=== PATIENT | female | born 1945 | race Caucasian/White ===

== ENCOUNTER 2019-10-01 07:30 | Day surgery (SDC) | payer MEDICARE, OTHER ==
[~2019-10-01] VITALS: Ht 180.3 cm; Wt 72.6 kg
[~2019-10-01 07:30] MED LIST: ARMOUR THYROID15 MG PO; ASPIR-LOW81 MG PO; BANOPHEN50 MG PO; BI EST PO; CEPHALEXIN500 MG PO; CHLORELLA100 GM MISC; CORTEF10 MG PO; DEPLIN PO; DHEA25 M1 PO; EPIN0.3P IM; EPIPEN 2-P0.3 MG/0.3 IM; KLOR-CON 1010 MEQ PO; L-METHYLFOLATE7.5 M1 PO; LYSINE1000 MG PO; MEGA TAURINE1000 MG PO; PROBIOTIC1 EAC1 PO; PROG PO; PROGESTERONE100 MG PO; SPIRULINA500 MG PO; TYLENOL WITH C1 EACH PO; V-R WOMEN'S CO1 EACH PO; VITAMIN D33000 UNIT PO; [UNRECOGNIZED DRUG - OTHER] PO; [UNRECOGNIZED DRUG - OTHER] PO; [UNRECOGNIZED DRUG - OTHER] PO; [UNRECOGNIZED DRUG - OTHER] PO; [UNRECOGNIZED DRUG - OTHER] PO
--- NOTE | 2019-10-01 09:34 | NUR ---
10/01/19 0934 [facility] AR[facility]IVED IN PACU SLEEPY WITH NO C/O'S. 0915 SITTING UP IN BED SIPPING ON WATER. AT BEDSIDE TALKING WITH PT ABOUT PROCEDURE. 924 DC INSTRUCTIONS GIVEN. ALL QUESTIONS ANSWERED. PT GETTING DRESSED WITH RN STAND BY ASSIST. 929 PT DRESSED. IV DC'D. TIP INTACT. INSTRUCTIONS GIVEN TO .
--- NOTE | 2019-10-02 10:11 | OR ---
[facility] [address], [place] [address] Signed DATE OF OPERATION: 10/01/2019 SURGEON: Neo Cerda MD PREOPERATIVE DIAGNOSES: 1. Self described "celiac disease.". 2. Upper abdominal pain and diarrhea. 3. History of normal colonoscopy and known history of cholecystectomy. POSTOPERATIVE DIAGNOSES: 1. Mild diffuse gastritis without ulceration, poor flap valve, normal esophagus. 2. Normal-appearing duodenum and proximal jejunum. PROCEDURE: Esophagogastroduodenoscopy with biopsy. ANESTHESIA: Intravenous sedation fentanyl 100 mcg, Versed 3 mg. INDICATION: This 74-year-old white woman is a patient of Curtis Hutchins and has self described "celiac disease" for many years. She has had diarrhea problem for which she has undergone colonoscopy showing no pathologic abnormality. She has also had cholecystectomy in the past and empiric treatment with Questran did show some improvement of her diarrhea problem. She has never had formal testing regarding the celiac disease and is admitted at this time to undergo upper endoscopy to perform jejunal and duodenal biopsies and to assess for upper abdominal pain problems. Risks of bleeding, infection, and perforation related to upper endoscopy was reviewed with her and she understands and wished to proceed. FINDINGS: Esophagus was normal though the flap valve was poor. There was mild diffuse gastritis without sign of ulceration. CLOtest was equivocal at 15 minutes post procedure. The duodenum and proximal jejunum did not have serrated edges to suggest celiac disease, though biopsies were obtained nevertheless. DESCRIPTION OF PROCEDURE: The patient was brought to the endoscopy suite and given topical lidocaine spray hypopharyngeal anesthesia and placed in lateral decubitus position. With full cardiopulmonary monitoring, she was given intravenous sedation to the point of slurred Electronically Signed By: NEO CERDA MD 10/02/19 1011 PATIENT NAME: ISA MITCHELL OPERATIVE REPORT DATE OF : 49 REPORT #: [id number] PHYSICIAN: NEO CERDA MD PCP: CURTIS HUTCHINS MD REPORT IS CONFIDENTIAL AND NOT TO BE RELEASED WITHOUT AUTHORIZATION [facility] [address], [place] [address] Signed speech and nystagmus. A bite block was placed. An Olympus video upper endoscope passed in the hypopharynx. The vocal cords appeared normal. Scope was advanced to the esophagus, throughout its length, it was normal. Scope was passed to the stomach, which was insufflated with air with some bilious fluid was noted. There was mild diffuse gastritis both proximally and distally. Pylorus was normal without deformity or scarring. Scope was passed through into the duodenum, which was normal. Biopsies were obtained of the distal duodenum and proximal jejunum. The scope was withdrawn to the stomach and biopsies taken of the antrum for both EZEQUIEL and pathologic testing. Retroflexed view also allowed for proximal biopsies. The scope was withdrawn to the distal esophagus. Distal esophagus was biopsied despite its normal appearance as was the mid esophagus. Scope was removed and the patient was taken to the recovery room in good condition. CONCLUDING DIAGNOSIS: Mild diffuse gastritis, etiology uncertain. CLOtest equivocal. Final results pending. PLAN: We will empirically treat with Carafate as she is more inclined to natural remedies than systemic pharmacologic agents pending the findings of the CLOtest biopsies. We will see back in the office in a few weeks and review her pathology reports and response to treatment. Neo Cerda MD JM/MODL /[id number] cc: Curtis Hutchins MD Copies: ~ Electronically Signed By: NEO CERDA MD 10/02/19 1011 PATIENT NAME: ISA MITCHELL OPERATIVE REPORT DATE OF : 49 REPORT #: [id number] PHYSICIAN: NEO CERDA MD PCP: CURTIS HUTCHINS MD REPORT IS CONFIDENTIAL AND NOT TO BE RELEASED WITHOUT AUTHORIZATION
== END 2019-10-01 09:40 | disposition home or self-care (01) ==
LOC: OPS 07:30 → DS 07:30 → OPS 08:30
PROVIDERS: Surgery
PROC: 0DB78ZX Excision of Stomach, Pylorus, Via Natural or Artificial Opening Endoscopic, Diagnostic (ICD-10-PCS; 2019-10-01)
PROC: 0DB68ZX Excision of Stomach, Via Natural or Artificial Opening Endoscopic, Diagnostic (ICD-10-PCS; 2019-10-01)
PROC: 0DBA8ZX Excision of Jejunum, Via Natural or Artificial Opening Endoscopic, Diagnostic (ICD-10-PCS; 2019-10-01)
PROC: 0DB28ZX Excision of Middle Esophagus, Via Natural or Artificial Opening Endoscopic, Diagnostic (ICD-10-PCS; 2019-10-01)
PROC: 0DB38ZX Excision of Lower Esophagus, Via Natural or Artificial Opening Endoscopic, Diagnostic (ICD-10-PCS; principal; 2019-10-01 08:30)
DX: K29.50 Unspecified chronic gastritis without bleeding (principal); K20.9 Esophagitis, unspecified; Z90.49 Acquired absence of other specified parts of digestive tract; Z88.8 Allergy status to other drugs, medicaments and biological substances; Z88.0 Allergy status to penicillin; Z88.2 Allergy status to sulfonamides; Z91.09 Other allergy status, other than to drugs and biological substances; Z79.899 Other long term (current) drug therapy
CPT/HCPCS: 88305; 99153; G0500; J2250; J3010; J7121

== ENCOUNTER 2020-02-15 08:01 | Emergency (ER) | payer MEDICARE, OTHER ==
[~2020-02-15] VITALS: Ht 180.3 cm; Wt 75.3 kg
--- NOTE | 2020-02-15 17:21 | EKG ---
[facility] [address] [facility] [place], [place] [address] Signed Sinus rhythm with premature supraventricular complexes ST \T\ T wave abnormality, consider inferior ischemia Abnormal ECG No previous ECGs available Confirmed by ISRAEL CHOUDHARY DO ([id number]) on 02/15/2020 5:21:09 PM Electronically Signed By: ISRAEL CHOUDHARY DO 02/15/20 1721 PATIENT NAME: ISA MITCHELL Electrocardiogram DATE OF : 49 PHYSICIAN: ISRAEL CHOUDHARY DO REPORT #: [id number] REPORT IS CONFIDENTIAL AND NOT TO BE RELEASED WITHOUT AUTHORIZATION
== END 2020-02-15 10:08 | disposition home or self-care (01) ==
LOC: ED 08:01
DX: R07.9 Chest pain, unspecified (principal); E03.9 Hypothyroidism, unspecified; Z88.8 Allergy status to other drugs, medicaments and biological substances; Z88.0 Allergy status to penicillin; Z79.899 Other long term (current) drug therapy
CPT/HCPCS: 71045; 80053; 83735; 84484; 85025; 85379; 93005; 93010; 99285-25

== ENCOUNTER 2020-07-22 10:28 | Inpatient (IN) | payer MEDICARE, OTHER ==
[~2020-07-22] VITALS: Ht 180.3 cm; Wt 76.3 kg
[~2020-07-22 10:28] MED LIST changes: -ASPIR-LOW81 MG PO; +ASPIRIN EC325 MG PO
[2020-07-22] MEDS ORDERED: DEPLIN-ALGAL O1 EACH PO ×3 (11:38→13:54)
[2020-07-22] MEDS ORDERED: PURE TAURINE500 MG PO ×2 (11:39)
[2020-07-22] MEDS ORDERED: MAG-AMIDE SR 51 EACH PO ×2 (13:55)
[2020-07-22] MEDS ORDERED: DHEA 10 MG TAB1 EACH PO (14:01)
[2020-07-22] MEDS ORDERED: SPIRULINA500 MG PO ×2 (14:02)
[2020-07-22] MEDS ORDERED: ALLEGRA ALLERG180 MG PO ×2 (14:03)
[2020-07-22] MEDS ORDERED: LOSARTAN POTASS25 MG PO ×2 (14:05)
[2020-07-22] MEDS ORDERED: DILTIAZEM ER240 M1 PO (14:05)
[2020-07-22] MEDS ORDERED: ZOLPIDEM TARTRA10 MG PO ×2 (14:06)
[2020-07-22] MEDS ORDERED: TRAZODONE HCL50 MG PO ×2 (14:06)
[2020-07-22] MEDS ORDERED: L-THEANINE200 MG PO ×2 (14:07)
--- NOTE | 2020-07-22 15:13 | EKG ---
[facility] [address] [facility] [place] [address] Signed Atrial flutter with 2:1 AV conduction Anterolateral infarct , age undetermined ST \T\ T wave abnormality, consider inferior ischemia Abnormal ECG When compared with ECG of 15-FEB-2020 08:10, Atrial flutter has replaced Sinus rhythm Anterolateral infarct is now present Non-specific change in ST segment in Inferior leads Confirmed by RAHEEL FOWLER MD ([id number]) on 07/22/2020 3:13:17 PM Electronically Signed By: RAHEEL FOWLER MD 07/22/20 1513 PATIENT NAME: ISA MITCHELL Electrocardiogram DATE OF : 49 PHYSICIAN: RAHEEL FOWLER MD REPORT #: [id number] REPORT IS CONFIDENTIAL AND NOT TO BE RELEASED WITHOUT AUTHORIZATION
--- NOTE | 2020-07-22 15:45 | NUR ---
BOTH NARES SWABBED FOR COVID-19 WITHOUT COMPLICATION. SAMPLE TAKEN TO [facility] FOR RAPID TESTING.
--- NOTE | 2020-07-22 16:59 | NUR ---
PATIENT ARRIVES TO CCU VIA STRETCHER AT 1650. PT ABLE TO STAND AND TRANSFER TO BED. PT NOW ON BSC. HR REMAINS ELEVATED IN THE 120s, AFLUTTER.
--- NOTE | 2020-07-22 18:18 | NUR ---
PATIENT ADMITTED TO CCU VIA STRETCHER TO ROOM 127 FOR AFIB/FLUTTER WITH RVR. PATIENT ABLE TO STAND AND PIVOT TO BED. PT ON DILT GTT AT 15 MG/HR WITH HR REMAINING ELEVATED, 100-120s, AFLUTTER. PT UP TO [facility] TO VOID. PT VOIDING VERY FREQUENTLY. PT'S IN ROOM UPON ADMIT. PT IS COVID NEGATIVE AND REPORTS THAT SHE HAD COVID IN JANUARY OF LAST YEAR. PT FAMILIAR WITH AFIB SINCE HER HAS BEEN BATTLING IT SINCE 1995 PER PATIENT. PT TO RECEIVE IV POTASSIUM. PLAN OF CARE DISCUSSED. DINNER ORDERED FOR PATIENT. CONTINUE TO MONITOR.
--- NOTE | 2020-07-22 18:25 | NUR ---
IV POTASSIUM BURING PATIENT'S IV SITE. INFUSION SLOWED DOWN TO 100 ML/HR AND PT ASKED TO CALL IF THIS CONTINUES TO BURN. WILL CONTINUE TO MONITOR.
--- NOTE | 2020-07-22 20:16 | NUR ---
PT RESTING IN BED. HAS EPISODES OF NAUSEA AND DIZZYNESS THAT COME AND GO. CURRENTLY USING COOL CLOTH TO BACK OF NECK FOR NAUSEA WITH GOOD EFFECT. CONT TO HAVE URINARY FREQUENCY. HR 80-90'S AT REST UP TO 107 WITH GETTING UP TO BSC. PT FEELS LIKE SHE IS NOT THINKING CLEARLY NORMAL.
--- NOTE | 2020-07-22 21:01 | NUR ---
HR 70-80'S, CARDIZEM DEC TO 10MG/HR.
--- NOTE | 2020-07-22 22:30 | NUR ---
PT CONT HAVE DIFFICULTY SLEEPING/RELAXING AFTER TRAZADONE WAS GIVEN. ALSO C/O TICKING SOUND IN ROOM. EXPLAINED WAS EQUIPMENT AND GIVEN EAR PLUGS. PT IS USING HER OWN SLEEP MASK. GIVEN 3MG MELETONIN PO. ALSO CONT TO VOID FREQ, THOUGH IN LARGER AMTS.
--- NOTE | 2020-07-22 23:48 | NUR ---
PT STATES SHE SLEPT FOR ABOUT 30 MIN. AWAKE UP TO VOID. BROUGHT IN NOISE CANCELLING HEADPHONES FOR PT. PT ASKING WHY HER HR GOES UP. EXPLAINED IT WAS WITH ACTIVITY AND THAT SHE WAS NOT COMPLETELY THERAPUTIC ON HER NEDS YET. PT IS VERY WORRIED ABOUT GETTING SLEEP AND ASKING IF SHE CAN HAVE AMBIEN YET. PT WAS INFORMED THAT SHE WAS STARTING TO SLEEP AND THAT THIS NURSE WOULD PREFER TO WAIT, AND TO CALL IF SHE DID CONT TO HAVE DIFFICULTY SLEEPING. HR 70'S AT REST UP TO 110-115 WITH ACTIVITY.
--- NOTE | 2020-07-23 00:29 | EKG ---
[facility] [address] [place] [address] Signed Atrial flutter with variable AV block Anterior infarct (cited on or before 22-JUL-2020) Marked ST abnormality, possible inferior subendocardial injury Abnormal ECG When compared with ECG of 22-JUL-2020 10:40, (Unconfirmed) ST now depressed in Inferior leads Confirmed by RAHEEL FOWLER MD ([id number]) on 07/23/2020 12:29:20 AM Electronically Signed By: RAHEEL FOWLER MD 07/23/20 0029 PATIENT NAME: ISA MITCHELL Electrocardiogram DATE OF : 49 PHYSICIAN: RAHEEL FOWLER MD REPORT #: [id number] REPORT IS CONFIDENTIAL AND NOT TO BE RELEASED WITHOUT AUTHORIZATION
--- NOTE | 2020-07-23 02:24 | NUR ---
CALL LIGHT ON. pt UP TO VOID SBA. HR INCREASED TO 140'S BRIEFLY, 100'S WHEN NOT MOVING. BACK TO BED. NO REQUESTS AT THIS TIME. CALL LIGHT WITHIN REACH.
--- NOTE | 2020-07-23 03:11 | NUR ---
CALL LIGHT ON. pt UP TO VOID AND BACK TO BED SBA. FRESH WATER PROVIDED. CALL LIGHT WITHIN REACH.
--- NOTE | 2020-07-23 05:10 | NUR ---
UP TO BSC TO VOID AND PASS GAS. PT ALSO C/O HAVING GAS, DRINKING SELTZER WATER MAKES HER FEEL BETTER. HR UP TO 128 WITH ACTIVITY, IS STEADY ON FEET.
--- NOTE | 2020-07-23 06:59 | NUR ---
SLEPT POORLY. CONT ON DILTIAZEM AT 10MG/HR. CONT TO VOID FREQ.
--- NOTE | 2020-07-23 07:30 | NUR ---
PATIENT SHIFT REPORT RECIEVED FROM IN FLIGHT TECHNICIAN RN. PATIENT RESTING IN BED AT THIS TIME. PATIENT REMAINS ON THE DILTIAZEM GTT AT 10MLS/HR. PATIENTS HR IS 126 AT THIS TIME. CALL LIGHT IN REACH. WILL CONTINUE TO CLOSELY MONITOR.
--- NOTE | 2020-07-23 07:38 | NUR ---
RECIEVED REPORT FROM CHOIR TEACHER. PT AWAKE AND ALERT SITTING IN BED WITH HEAD ELEVATED. NO CONCERNS AT THIS TIME. CALL LIGHT WITHIN REACH. WILL CONTINUE TO MONITOR CLOSELY.
--- NOTE | 2020-07-23 10:15 | NUR ---
ASSESSMENT COMLPETE. PT IN BED WITH HEAD ELEVATED. AT BEDSIDE. IV ANTIBIOTICS COMPLETE AND DISCONECTED. IV SITE ASSESSED AND WITHOUT COMPLICATIONS. PT A LITTLE CONFUSED. HAS NO CONCERNS AT THIS TIME. WILL CONTINUE TO MONITOR CLOSELY. CALL LIGHT AND COMMODE WITHIN REACH.
[2020-07-23] MEDS ORDERED: ARMOUR THYROID60 MG PO ×2 (11:37)
[2020-07-23] MEDS ORDERED: DILT-XR120 MG PO ×2 (11:39)
--- NOTE | 2020-07-23 12:58 | NUR ---
ASSESSMENT COMPLETE. PT UP TO USE BEDSIDE COMMODE AND BACK TO BED. AFTER PT RECIEVED DIGOXIN HEARTRATE IS IN THE 70S. PT EATING LUNCH WITH HEAT ELEVATED TO 54 DEGREES. IS AT BEDSIDE WITH PT. NO CONCERNS AT THIS TIME. CALL LIGHT WITHIN REACH. WILL CONTINUE TO MONITOR CLOSELY.
--- NOTE | 2020-07-23 14:30 | NUR ---
PHARMACY IN TALKING WITH PATIENT ABOUT HER MEDICATIONS. PATIENTS HR IS RESTING IN THE 60'S AT REST AT HIS TIME. NO OTHER NEEDS AT THIS TIME. WILL CONTINUE TO CLOSELY.
[2020-07-23] MEDS ORDERED: MELATONIN3 MG PO ×2 (15:14)
[2020-07-23] MEDS ORDERED: L-METHYLFOLATE7.5 MG PO ×2 (15:15)
[2020-07-23] MEDS ORDERED: VITAMIN D325 MC2 PO ×2 (15:16)
--- NOTE | 2020-07-23 15:22 | NUR ---
Medications reconciled using pharmacy records and patient interview
--- NOTE | 2020-07-23 17:10 | NUR ---
CALLED MD FOWLER TO UPDATE THAT PATIENTS HR IS 40-50'S WITH PAUSES AT TIMES. PATIENTS BP WAS 88/50. PATIENT DENIES DIZZINESS OR LIGHTHEADEDNESS. PATIETNS STATES THE FEELING OF "ANXIETY" HAS RESOLVED. PER MD HOLD DIGOXIN DOSE. MD WILL RESCHEDULE FOR TONIGHT IF PATIENTS VITALS ARE STABLE. UPDATED THAT E.COLI IS GROWING IN PATIENTS URINE. PATIENT IS CURRENTLY ON ROCEPHINE. PATIENT RESTING IN BED AND UPDATED ON PLAN OF CARE. NO OTHER ENEDS AT THIS TIME. WILL CONTINUE TO CLOSELY MONTIOR.
--- NOTE | 2020-07-23 19:20 | NUR ---
SHIFT REPORT RECEIVED FROM RYDER CONNOLLY. PT RESTING IN BED. TELE HR AFIB @ 67. TGX170%. NO NEEDS AT THIS TIME. CALL LIGHT IN REACH.
--- NOTE | 2020-07-23 20:30 | NUR ---
ASSESSMENT, VS AND I&O COMPLETED. SCHEDULED MEDS PROVIDED. PT EDUCATION PROVIDED CONCERNING SLEEP MEDS PT IS ANXIOUS ABOUT BEING ABLE TO SLEEP. GCS 15, A&O X4. LUNGS CLEAR. HEART TONES IRREGULAR. HR AFIB @ 65, SPO2 97% RA. SKIN WPD. IVs WNL, CDI, FLUSHED WELL. ABD SOFT, NONTENDER, BOWEL TONES ACTIVE. NO EDEMA NOTED. CMS INTACT. PT STATES SHE IS "DRINKING FIZZY WATER TO HELP MY STOMACH" ([place]). PT DENIES NAUSEA. NO OTHER NEEDS AT THIS TIME. CALL LIGHT IN REACH.
--- NOTE | 2020-07-23 21:13 | NUR ---
PT ASKS FOR MELATONIN FOR SLEEP BUT DOES NOT WANT TO TAKE THE ORDERED 3MG. PILL CUT IN HALF FOR 1.5MG DOSE, PROVIDED. NO OTHER NEEDS AT THIS TIME. CALL LIGHT IN REACH.
--- NOTE | 2020-07-23 23:00 | NUR ---
PT RESTING IN BED, EYES CLOSED. RR 20, HR AFIB @63. PT DOES NOT MEET PARAMETERS FOR SCHEDULED MED, NOT PROVIDED. CALL LIGHT IN REACH.
--- NOTE | 2020-07-24 00:15 | NUR ---
ASSESSMENT, I&O AND VS COMPLETED. PT REQUESTS SLEEP MED, PROVIDED. PT UP TO BSC AND BACK TO BED. LUNGS CLEAR, HEART TONES IRREGULAR. SPO2 98% ON RA, HR AFIB @ 65. IVs WNL. ABD SOFT, NONTENDER, BOWEL TONES ACTIVE. CMS INTACT. NO OTHER NEEDS AT THIS TIME. CALL LIGHT IN REACH.
--- NOTE | 2020-07-24 01:56 | NUR ---
PT RESTING IN BED, EYES CLOSED. RR 18, HR AFIB @ 64. CALL LIGHT IN REACH.
--- NOTE | 2020-07-24 02:49 | NUR ---
PT UP TO BSC AND BACK TO BED. PT STATES SHE FEELS LIKE SHE IS STARTING TO HAVE PAIN WITH URINATION. NO OTHER NEEDS AT THIS TIME. CALL LIGHT IN REACH.
--- NOTE | 2020-07-24 04:25 | NUR ---
ASSESSMENT, VS AND I&O COMPLETED. PT STATES THE PAIN WITH URINATION IS AN "ACHE" NOT BURNING, DENIES NEED FOR PAIN MANAGEMENT. GCS 15, A&O X4. LUNGS CLEAR. HR AFIB @ 68, HEART TONES IRREGULAR. ABD SOFT, NONTENDER, BOWEL TONES ACTIVE. CMS INTACT. IVs WNL. SKIN WPD. NO OTHER NEEDS AT THIS TIME. CALL LIGHT IN REACH.
--- NOTE | 2020-07-24 05:51 | NUR ---
SCHEDULED MED PROVIDED. WATER PROVIDED. NO OTHER NEEDS. CALL LIGHT IN REACH.
--- NOTE | 2020-07-24 07:01 | NUR ---
CARDIJARREDM HELD V/S DOES NOT MEET PARAMETERS. DIGOXIN PROVIDED. NO OTHER NEEDS AT THIS TIME. CALL LIGHT IN REACH.
--- NOTE | 2020-07-24 07:30 | NUR ---
PATIENT SHIFT REPORT RECIEVED FROM STONE SAWYER RN. PATIENT RESTING IN BED AT THIS TIME. PER STONE SAWYER RN PATIENTS BLOOD PRESSURE DID NOT MEET PARAMETERS TO GIVE AM DILTIAZEM MEDICATION, SO IT WAS HELD. NO OTHER NEEDS AT THIS TIME. WILL CONTINUE TO CLOSELY MONITOR
--- NOTE | 2020-07-24 07:45 | NUR ---
RECEIVED REPORT FROM COLOR GRINDER. PT AWAKE AND ALERT WITH HEAD ELEVATED. DR IN WITH PT. RECIEVED VERIFICATION THAT PT SHOUD STILL RECIEVE MORNING MEDICATIONS. WILL CONTINUE TO MONITOR CLOSELY. NO CONCERNS AT THIS TIME. CALL LIGHT WITHIN REACH.
--- NOTE | 2020-07-24 08:00 | NUR ---
MANFRED STUDENT NURSE WILL BE CARING FOR THIS PATIENT ALONG WITH THIS RN.
--- NOTE | 2020-07-24 08:15 | NUR ---
SPOKE WITH MD ABOUT STAFF HOLDING DILTIAZEM THIS AM. PER MD GO AHEAD AND GIVE NOW AT THIS TIME. PATIENTS BLOOD PRESSURE IS 104/80. WILL GIVE MEDICATIONS PER MDS VERBAL OKAY. NO OTHER NEEDS AT THSI TIME. PATIENT WILL BE TRANSFERED TO A MEDINJAL PATIENT TODAY. WILL CONTINUE TO CLOSELY MONITOR.
--- NOTE | 2020-07-24 09:06 | NUR ---
NURSE ANSWERED CALL LIGHT AND PT HAD A BM. HELPED PT TO COMMODE, CHANGED BEDDING, GAVE PT A BED BATH. BRUSHED AND BRAIDED PT HAIR. GAVE IV ANTIBIOTICS AND OTHER MEDICATION PER EMAR. VERIFIED WITH MD ON MEDICATION FOR HEART RATE AND BLOOD PRESSURE SINCE BP WAS 102/81. ASSESSMENT COMPLETE. PT SITTING AT BEDSIDE EATING HER BREAKFAST. NO OTHER CONCERNS AT THIS TIME. WILL CONTINUE TO MONITOR CLOSELY.
--- NOTE | 2020-07-24 10:00 | NUR ---
PATIENTS HR IS MORE CONTROLLED AROUND 80'S AT THIS TIME. WILL CONTINUE TO CLSOELY MONTIOR. ALL QUESTIONS ANSWERED ABOUT MEDICATIONS AND PLAN OF CARE. PATIENT GETTING UP TO BEDSIDE CAMMODE ON HER OWN AND CALLS STAFF WHEN IT NEEDS EMPTIED. WILL CONTINUE TO CLOSELY MONITOR.
--- NOTE | 2020-07-24 10:18 | NUR ---
PT HAD ANOTHER LOOSE STOOL. SHE REQUESTED A DEPENDS JUST IN CASE SHE COULD NOT MAKE IT TO THE COMMODE. HELPED PT GET CLEANED UP. PROVIDED HER WITH THE MENU AND PHONE SO SHE COULD CALL DOWN FOR LUNCH IF SHE WANTED. NO OTHER CONCERNS AT THIS TIME. CALL LIGHT WITHIN REACH. WILL CONTINUE TO MONITOR CLOSELY.
--- NOTE | 2020-07-24 12:00 | NUR ---
ASSESSMENT COMPLETE. PT HEART RATE IS IN 70S UNTIL PT STANDS UP OR SITS ON THE EDGE OF THE BED. PT STATES "SHE FEELS WEAK FROM SO MANY EPISODES OF DIAHRREA TRHIS MORNING." WANTS TO START SITTING AT THE EDGE OF THE BED OR IN THE CHAIR FOR MEALS. NO OTHER CONCERNS AT THIS TIME. CALL LIGHT WITHIN REACH. AT BEDSIDE. WILL CONTINUE TO MONITOR.
--- NOTE | 2020-07-24 12:30 | NUR ---
PATIENTS LUNCH HERE AND BROUGHT IN TO THE PATIENT. PATIENT SITTING UP AT THE EDGE OF THE BED EATING IT AT THIS TIME. NO OTHER NEEDS. WILL CONTINUE TO CLOSELY MONITOR. PATIENT CURENTLY A [facility]VI[facility] AT THIS TIME. WILL POSSIBLY TRANSFER TO A [facility] ROOM THIS EVENING.
--- NOTE | 2020-07-24 14:12 | NUR ---
PT RESTING IN HER BED. PT REQUESTED A WET TOWEL TO PUT ON THE BACK OF HER NECK. HEAD ELEVATED TO 37 DEGREES. PT REQUESTS TO HAVE A HOT TEA WITHOUT CAFFIENE. NO OTHER CONCERNS AT THIS TIME. MARCIAL CONTINUE TO MONITOR. CALL LIGHT WITHIN REACH.
--- NOTE | 2020-07-24 16:00 | NUR ---
ASSESSMENT COMPLETE. PT AWAKE AND ALERT. ABLE TO GET UP TO THE COMMODE WITHOUT ASSISTANCE. TALKED WITH PT ABOUT MEDICATIONS AND HOW HER AND HER DOCTOR WITH HAVE TO FIND A RIGHT BALANCE. TALKED ABOUT [facility] NO OTHER CONCERNS AT THIS TIME.
--- NOTE | 2020-07-24 17:00 | NUR ---
REPORT CALLED AND GIVEN TO JARRELL RN ON THE MEDICAL FLOOR. UPDATED ON PATIENTS CURRENT MEDICATION CHANGES FOR HER HR CONTROL. ALL QUESTIONS ANSWERED. WILL PLACE PATIENT ON A TELEMETRY FOR CONTINUED HR MONITORING. NO OTHER QUESTIONS AT THIS TIME.
--- NOTE | 2020-07-24 17:00 | NUR ---
Spoke with pt and her spouse. She states they live in [place] in a daylight basement with 2 steps. She has two walkers and no other DME. States she has had heart issues x 1 year with increasin weakness. Has an appt with Cardiology at [facility] on Tuesday. States she is concerned about walking on her own. Informed I will ask Dr. Nguyen for a PT as pt states she is afraid to walk without assist and is concerned for dc. Note left for Pt plans on dc to home with spouse when she is cleared medically.
--- NOTE | 2020-07-24 17:00 | NUR ---
HELPED PT UP TO USE THE COMMODE. TRASNFERED PT FROM CCU MONITOR TO THE PORTABLE TELEMETRY AND GETTING THINGS GATHERED TO TRANSFER HER OVER TO MED/SURG. BOTTOM IS VERY RAW FROM SO MANY LIQUID AND LOOSE BOWEL MOVEMENT TODAY. OFFERED BARRIER STRAY OR BARRIER CREAM. PT WOULD PERFER BARRIER SPRAY SO ADMINISTERED TO HER BOTTOM BEFORE TRANSFERRING HER TO MED/SURG FLOOR.
--- NOTE | 2020-07-24 17:15 | NUR ---
WHEELED PATIENT OVE TO THE MEDICAL FLOOR ROOM 123 VIA HER BED. ALL BELONGINGS SENT WITH PATIENT. PATIENTS IS AT THE BEDSIDE. JARRELL RN IN THE ROOM UPON ARRIVAL. ALL QUESTIONS ANSWERED. NO OTHER NEEDS AT THIS TIME.
--- NOTE | 2020-07-24 17:19 | NUR ---
ARRIVES FROM CCU IN BED. ASSESSMENT COMPLETED. VITAL SIGNS OBTAINED.
--- NOTE | 2020-07-24 19:10 | NUR ---
SHIFT REPORT RECEIVED FROM DAYSHIFT MOHSEN VIEYRA AT BEDSIDE, pt AWAKE AND RESTING IN BED. TELE#[address], HR 70'S, NORMAL SINUS RHYTHM. BOARD UPDATED, pt REQUESTING TO SHOWER, PARUL BERNAL AWARE AND WILL ASSIST pt. NO FURTHER NEEDS, CALL LIGHT IN REACH.
--- NOTE | 2020-07-24 20:30 | NUR ---
CALL LIGHT ANSWERED, pt REQUESTING EVENING MEDS SO SHE CAN TRY AND GET SOME SLEEP. pt A/OX4, VSS. NO PAIN VERBALIZED. pt ANXIOUS IN GENERAL, pt DECLINES SCHEDULED TRAZODONE, STATES, "IT DOESN'T HELP MUCH". pt INITIALLY CONFUSED REGARDING USES FOR SCHEDULED MEDS, EDUCATION PROVIDED ON USE OF SCHEDULED TRAZODONE AND ELIQUIS, pt CONTINUES TO REFUSE TRAZODONE. ASSESSMENT COMPLETE, THERAPEUTIC COMMUNICATION GIVEN REGARDING POC FOR SHIFT, pt LOOKING FOR RELAXED. WILL MONITOR. NO FURTHER NEEDS, pt's OWN CPAP IN ROOM. CALL LIGHT IN REACH.
--- NOTE | 2020-07-24 21:15 | NUR ---
pt AWAKE AND RESTING IN BED, DENIES NEEDS. CALL LIGHT IN REACH.
--- NOTE | 2020-07-24 23:30 | NUR ---
ROUNDING ON pt, pt UP BSC, STATES, "I JUST CAN'T SLEEP. I SHOULD'VE TAKEN THAT PILL EARLIER". EDUCATION GIVEN ON INSOMNIA, PRN MEDICAITON OFFERED, ACCEPTED BY pt, SEE EMAR. pt IN BED, DENIES FURTHER NEEDS. CALL LIGHT IN REACH.
--- NOTE | 2020-07-25 02:27 | NUR ---
pt RESTING IN BED WITH EYES CLOSED, HOME CPAP MACHINE IN PLACE. TELE#3, IRREGULAR, HR 60'S. NO DISTRESS OR SIGNS OF PAIN NOTED. CALL LIGHT IN REACH.
--- NOTE | 2020-07-25 05:30 | NUR ---
IN TO GET VITALS, PT UP TO THE COMMODE RECENTLY, PT AGREED TO BE OFF CPAP UNTIL LAB HAS BEEN IN, NO FURTHER NEEDS
--- NOTE | 2020-07-25 06:03 | NUR ---
SCHEDULED ARMOUR THYROID GIVEN, SEE EMAR. ASSESSMENT COMPLETE, NO NEW CHANGES OR CONCERNS. pt DENIES PAIN, REPORTS MINIMAL NAUSEA, COOL RAG IN PLACE. NO FURTHER NEEDS, CALL LIGHT IN REACH.
--- NOTE | 2020-07-25 06:39 | NUR ---
SCHEDULED CARDIAC MEDICATION GIVEN, SEE EMAR. VSS, pt WISHES TO TAKE SHOWER. AGREES TO WAIT UNTIL AFTER AM BLOOD DRAW. NO FURTHER NEEDS, CALL LIGHT IN REACH.
--- NOTE | 2020-07-25 07:06 | NUR ---
PER PATIENT REQUEST PATIENT HELPED INTO SHOWER/SHOWER CHAIR. IV SITES WRAPPED, AND TELE IN PLASTIC BAG. PROVIDED WITH ALL SOAPS/WASH RAGS. PATIENT INSTRUCTED TO CALL IF SHE WAS WANTING TO GET UP AND WHEN SHE WAS FINISHED. CALL CORD IN REACH IN BATHROOM. DENIES ANY FUTHER NEEDS AT THIS TIME. DAY WEIGHT LOSS COUNSELOR NOTIFIED THAT PATIENT IS IN BATHROOM SHOWERING AND WILL BE NEEDING ASSISTANCE OUT SOON.
--- NOTE | 2020-07-25 07:13 | NUR ---
Report from MOHSEN Goodwin. Patient showering at this time, denies needs at this time.
--- NOTE | 2020-07-25 08:28 | NUR ---
AM medications administered as prescribed. Takes without difficulty. Educated on medications and their uses, verbalizes understanding. Assessment completed. States she is feeling a bit anxious this AM after discussing family matters with sister. States she has previously been prescribed Xanax for anxiety in the past and it has been effective. Telemtry at time of feeling anxious without changes, rate remains in 70's. Dr. Nguyen notified. Patient also trying distraction methods like playing on cell phone and watching TV to help with anxiety with minimal improvement.
--- NOTE | 2020-07-25 09:19 | NUR ---
PATIENT UP ON BSC, VITALS AND I&OS CHARTED. CALL LIGHT IN REACH.
--- NOTE | 2020-07-25 10:29 | NUR ---
Ambulating in gaines with PT.
[2020-07-25] MEDS ORDERED: BISOPROLOL FUMAR5 MG PO ×2 (11:21)
[2020-07-25] MEDS ORDERED: ELIQUIS5 MG PO ×2 (11:21)
--- NOTE | 2020-07-25 11:40 | NUR ---
Spoke with pt, she is walking in the gaines. Pt denies c/o. Plans on dc today to home with spouse. Denies needs.
--- NOTE | 2020-07-25 12:54 | NUR ---
Patient sitting up in recliner. Informed she has discharge orders. States will be in to pick her up later this afternoon or early evening.
== END 2020-07-25 15:02 | disposition home or self-care (01) | DRG 309 ==
LOC: ED 10:28 → CCU 10:31 → MS 07-24 17:15
PROVIDERS: ADMIT Internal Medicine; ATTEND Internal Medicine
DX: I48.92 Unspecified atrial flutter (principal); N39.0 Urinary tract infection, site not specified; E27.40 Unspecified adrenocortical insufficiency; B96.20 Unspecified Escherichia coli [E. coli] as the cause of diseases classified elsewhere; G47.30 Sleep apnea, unspecified; E03.9 Hypothyroidism, unspecified; I10 Essential (primary) hypertension; I48.91 Unspecified atrial fibrillation; Z90.89 Acquired absence of other organs; Z90.49 Acquired absence of other specified parts of digestive tract; Z88.8 Allergy status to other drugs, medicaments and biological substances; Z88.0 Allergy status to penicillin; Z88.2 Allergy status to sulfonamides; Z88.1 Allergy status to other antibiotic agents; Z79.82 Long term (current) use of aspirin; Z79.899 Other long term (current) drug therapy
CPT/HCPCS: 36415; 71045; 80048; 80053; 80162; 81001; 83735; 84443; 84481; 84484; 85025; 87077; 87088; 87186; 93005; 93010; 96365; 96375; 96376; 97162; 99285-25; C9803; J0696; J1160; J3480; J7030; J7060; U0003

== ENCOUNTER 2020-08-01 19:56 | Emergency (ER) | payer MEDICARE, OTHER ==
[~2020-08-01] VITALS: Ht 180.3 cm; Wt 76.2 kg
[~2020-08-01 19:56] MED LIST changes: +ALLEGRA ALLERG180 MG PO; +ARMOUR THYROID60 MG PO; +BISOPROLOL FUMAR5 MG PO; +DEPLIN-ALGAL O1 EACH PO; +DHEA 10 MG TAB1 EACH PO; +DILT-XR120 MG PO; +DILTIAZEM ER240 M1 PO; +ELIQUIS5 MG PO; +L-METHYLFOLATE7.5 MG PO; +L-THEANINE200 MG PO; +LOSARTAN POTASS25 MG PO; +MAG-AMIDE SR 51 EACH PO; +MELATONIN3 MG PO; +PURE TAURINE500 MG PO; +TRAZODONE HCL50 MG PO; +VITAMIN D325 MC2 PO; +ZOLPIDEM TARTRA10 MG PO
--- OUTSIDE RECORDS SUMMARY | 2020-08-01 20:00 | XMS ---
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 Tamy VISIT COUNT (12 MO.) 3 [facility] TOTAL 3 NOTE: Visits indicate total known visits. ED/UCC VISIT TRACKING (12 MO.) 08/01/2020 19:57 [facility] [place] TYPE: Emergency COMPLAINT: - CHEST PAIN,WEAKNESS 07/22/2020 10:30 [facility] [place] TYPE: Emergency COMPLAINT: - HIGH HEART RATE, HIGH B/P 02/15/2020 08:01 [facility] [place] TYPE: Emergency COMPLAINT: - CHEST PAIN DIAGNOSES: - Other exterminator helper termite (current) drug therapy - Hypothyroidism, unspecified - Allergy status to penicillin - Chest pain, unspecified - Allergy status to other drugs, medicaments and biological substances - Allergy status to other drugs, medicaments and biological substances INPATIENT VISIT TRACKING (12 MO.) 07/24/2020 11:15 [facility] [place] TYPE: Medical Surgical COMPLAINT: - A. FLUTTER DIAGNOSES: - Other fdc (current) drug therapy - Unspecified adrenocortical insufficiency - Acquired absence of other organs - Unspecified Escherichia coli [E. coli] as the cause of diseases classified elsewhere - Allergy status to other antibiotic agents - Acquired absence of other specified parts of digestive tract - care home (current) use of aspirin - Urinary tract infection, site not specified - Allergy status to other drugs, medicaments and biological substances - Sleep apnea, unspecified - Unspecified atrial fibrillation - Allergy status to penicillin - Hypothyroidism, unspecified - Essential (primary) hypertension - Allergy status to sulfonamides - Unspecified atrial flutter [email or web address]
--- NOTE | 2020-08-02 06:49 | EKG ---
[facility] [address] [place] [address] Signed Suspect arm lead reversal, interpretation assumes no reversal Normal sinus rhythm with sinus arrhythmia Anterolateral infarct , age undetermined Abnormal ECG No previous ECGs available Confirmed by RAHEEL FOWLER MD ([id number]) on 08/02/2020 6:49:42 AM Electronically Signed By: RAHEEL FOWLER MD 08/02/20 0649 PATIENT NAME: ISA MITCHELL Electrocardiogram DATE OF : 49 PHYSICIAN: RAHEEL FOWLER MD REPORT #: [id number] REPORT IS CONFIDENTIAL AND NOT TO BE RELEASED WITHOUT AUTHORIZATION
== END 2020-08-01 22:22 | disposition home or self-care (01) ==
LOC: ED 19:56
DX: R00.2 Palpitations (principal); E03.9 Hypothyroidism, unspecified; Z88.8 Allergy status to other drugs, medicaments and biological substances; Z88.2 Allergy status to sulfonamides; Z88.0 Allergy status to penicillin; Z88.1 Allergy status to other antibiotic agents; Z79.899 Other long term (current) drug therapy
CPT/HCPCS: 71045; 80053; 83735; 84484; 85025; 93005; 93010; 99285-25

== ENCOUNTER 2020-08-13 18:22 | Emergency (ER) | payer MEDICARE, OTHER ==
[~2020-08-13] VITALS: Ht 180.3 cm; Wt 76.2 kg
--- OUTSIDE RECORDS SUMMARY | 2020-08-13 18:28 | XMS ---
PreManage Notification: ISA MITCHELL Security Data Warehouse Developer Events No recent Security Events currently on file CRITERIA MET - [facility] - 2 Visits in 30 Days CARE PROVIDERS CHERIE HUTCHINS [facility] 08/04/2020-Current PHONE: [phone] JAVIER SOLOMON Nurse Practitioner: Family Current PHONE: [phone] Harris has no Care Guidelines for this patient. Care History Medical/Surgical 08/05/2020 [facility] - DITCH RIDER-[facility] CARDIOLOG[facility]- [facility]- DR CIARA PINK - DUE TO RECENT ED VISITS- PANIC ATTACKS DUE TO MEDICATION CHANGE- PER MULTIMEDIA DEVELOPER DITCH RIDER AT [facility] PATIENT WAS TO STOP MEDICATION LISTED BELOW: -BISOPROLOL FUMARATE 2.5 MG PO DAILY \T\nbsp; BISOPROLOL FUMARATE 2.5 MG PO DAILY\T\nbsp; #15 TABLET Prov:\T\nbsp;\T\nbsp;\T\nbsp;\T\nbsp;\T\nbsp; 07/25/20 - ELECTROCARDIOLOGIST- REFERRED- [place] [facility]- August - DR JABIER GUERIN E.D. VISIT COUNT (12 MO.) 4 [facility] TOTAL 4 NOTE: Visits indicate total known visits. ED/UCC VISIT TRACKING (12 MO.) 08/13/2020 18:23 [facility] [place] TYPE: Emergency COMPLAINT: - RAPID HEART RATE,CHEST PAIN 08/01/2020 19:[address] [facility] [place] TYPE: Emergency COMPLAINT: - CHEST PAIN,WEAKNESS DIAGNOSES: - Allergy status to other drugs, medicaments and biological substances - Allergy status to penicillin - Hypothyroidism, unspecified - Other correction (current) drug therapy - Palpitations - Allergy status to sulfonamides - Allergy status to other antibiotic agents 07/22/2020 10:30 [facility] [place] TYPE: Emergency COMPLAINT: - HIGH HEART RATE, HIGH B/P 02/15/2020 08:[address] [place] [place] TYPE: Emergency COMPLAINT: - CHEST PAIN DIAGNOSES: - Other correction (current) drug therapy - Hypothyroidism, unspecified - Allergy status to penicillin - Chest pain, unspecified - Allergy status to other drugs, medicaments and biological substances - Allergy status to other drugs, medicaments and biological substances INPATIENT VISIT TRACKING (12 MO.) 07/24/2020 11:15 [facility] [place] TYPE: Medical Surgical COMPLAINT: - A. FLUTTER DIAGNOSES: - director long term care (current) use of aspirin - Unspecified atrial flutter - Allergy status to sulfonamides - Allergy status to other antibiotic agents - Urinary tract infection, site not specified - Essential (primary) hypertension - Hypothyroidism, unspecified - Unspecified atrial fibrillation - Allergy status to penicillin - Unspecified atrial fibrillation - Sleep apnea, unspecified - Acquired absence of other organs - Allergy status to other drugs, medicaments and biological substances - Urinary tract infection, site not specified - nursing home (current) use of aspirin - Sleep apnea, unspecified - Other correction (current) drug therapy - Acquired absence of other specified parts of digestive tract - Acquired absence of other specified parts of digestive tract - Unspecified Escherichia coli [E. coli] as the cause of diseases classified elsewhere - Essential (primary) hypertension - Allergy status to other drugs, medicaments and biological substances - Allergy status to other antibiotic agents - Unspecified Escherichia coli [E. coli] as the cause of diseases classified elsewhere - Acquired absence of other organs - Unspecified adrenocortical insufficiency - Allergy status to penicillin - Allergy status to sulfonamides - Other director long term care (current) drug therapy - Unspecified adrenocortical insufficiency - Hypothyroidism, unspecified [email or web address]
[2020-08-13] MEDS ORDERED: DILTIAZEM ER240 MG PO (18:42)
--- NOTE | 2020-08-15 17:13 | EKG ---
[facility] [address] [place] [address] Signed Sinus tachycardia with premature atrial complexes Septal infarct (cited on or before 22-JUL-2020) Possible Lateral infarct (cited on or before 22-JUL-2020) Marked ST abnormality, possible inferior subendocardial injury Abnormal ECG When compared with ECG of 01-AUG-2020 20:03, premature atrial complexes are now present Questionable change in initial forces of Lateral leads ST now depressed in Inferior leads T wave inversion more evident in Inferior leads Confirmed by CHAYITO SANDHU MD ([id number]) on 08/15/2020 5:12:48 PM Electronically Signed By: CHAYITO SANDHU MD 08/15/20 1713 PATIENT NAME: ISA MITCHELL Electrocardiogram DATE OF : 49 PHYSICIAN: CHAYITO SANDHU MD REPORT #: [id number] REPORT IS CONFIDENTIAL AND NOT TO BE RELEASED WITHOUT AUTHORIZATION
== END 2020-08-13 21:01 | disposition home or self-care (01) ==
LOC: ED 18:22
DX: I48.91 Unspecified atrial fibrillation (principal); E03.9 Hypothyroidism, unspecified; Z88.8 Allergy status to other drugs, medicaments and biological substances; Z88.2 Allergy status to sulfonamides; Z88.1 Allergy status to other antibiotic agents; Z88.0 Allergy status to penicillin; Z79.899 Other long term (current) drug therapy
CPT/HCPCS: 71045; 80053; 84443; 84484; 85025; 93005; 93010; 99285-25

== ENCOUNTER 2020-10-05 17:11 | Emergency (ER) | payer MEDICARE, OTHER ==
[~2020-10-05] VITALS: Ht 180.3 cm; Wt 76.2 kg
[~2020-10-05 17:11] MED LIST changes: +DILTIAZEM ER240 MG PO
--- OUTSIDE RECORDS SUMMARY | 2020-10-05 17:14 | XMS ---
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 Care History Medical/Surgical 08/05/2020 [facility] - CERTIFIED NURSING ATTENDANT-[facility]- [facility]- DR CIARA PINK - DUE TO RECENT ED VISITS- PANIC ATTACKS DUE TO MEDICATION CHANGE- PER QUANTITATIVE SOFTWARE ENGINEER CERTIFIED NURSING ATTENDANT AT [facility] PATIENT WAS TO STOP MEDICATION LISTED BELOW: -BISOPROLOL FUMARATE 2.5 MG PO DAILY \T\nbsp; BISOPROLOL FUMARATE 2.5 MG PO DAILY\T\nbsp; #15 TABLET Prov:\T\nbsp;\T\nbsp;\T\nbsp;\T\nbsp;\T\nbsp; 07/25/20 - ELECTROCARDIOLOGIST- REFERRED- [facility]- August - DR JABIER GUERIN E.D. VIS[facility] (12 MO[facility] T[facility] NOTE: Visits indicate total known visits. ED/UCC VISIT TRACKING (12 MO.) 10/05/2020 17:12 [facility] [place] TYPE: Emergency COMPLAINT: - HIGH BP, RAPID HEART RATE, URINE PROBLEM 09/05/2020 16:54 [place] TYPE: Emergency DIAGNOSES: - Polyuria - Dysuria - Unspecified abdominal pain - EMS; Polyuria; RM? - Chest pain, unspecified - Abdominal Pain 08/13/2020 18:23 CRISTIAN Estrada TYPE: Emergency COMPLAINT: - RAPID HEART RATE,CHEST PAIN DIAGNOSES: - Allergy status to other antibiotic agents - Allergy status to penicillin - Unspecified atrial fibrillation - Allergy status to sulfonamides - Other usp (current) drug therapy - Hypothyroidism, unspecified - Allergy status to other drugs, medicaments and biological substances 08/01/2020 19:57 C[facility]STIAN Estr[facility] TYPE: Emergency COMPLAINT: - CHEST PAIN,WEAKNESS DIAGNOSES: - Allergy status to other drugs, medicaments and biological substances - Allergy status to penicillin - Hypothyroidism, unspecified - Other roasterman (current) drug therapy - Palpitations - Allergy status to sulfonamides - Allergy status to other antibiotic agents 07/22/2020 10:30 [place] [place] TYPE: Emergency COMPLAINT: - HIGH HEART RATE, HIGH B/P 02/15/2020 08:01 [place] [place]: Emergency COMPLAINT: - CHEST PAIN DIAGNOSES: - Other roasterman (current) drug therapy - Hypothyroidism, unspecified - Allergy status to penicillin - Chest pain, unspecified - Allergy status to other drugs, medicaments and biological substances - Allergy status to other drugs, medicaments and biological substances INPATIENT VISIT TRACKING (12 MO.) 07/24/2020 11:15 [facility] [place] TYPE: Medical Surgical COMPLAINT: - A. FLUTTER DIAGNOSES: - [facility] (current) use of aspirin - Unspecified atrial [...] Urinary tract infection, site not specified - predatory animal exterminator (current) use of aspirin - Sleep apnea, unspecified - Other usp (current) drug therapy - Acquired absence of [...] - Allergy status to sulfonamides - Other usp (current) drug therapy - Unspecified adrenocortical insufficiency - Hypothyroidism, unspecified [email or web address]
[2020-10-05] MEDS ORDERED: DEPLIN-ALGAL O1 EACH PO (17:42)
[2020-10-05] MEDS ORDERED: PROPAFENONE HC150 MG PO (17:45)
--- NOTE | 2020-10-06 18:07 | EKG ---
[facility] [address] [facility] [place] [address] Signed Sinus rhythm with premature supraventricular complexes ST \T\ T wave abnormality, consider inferior ischemia Abnormal ECG When compared with ECG of 13-AUG-2020 18:30, Borderline criteria for Lateral infarct are no longer present ST no longer depressed in Inferior leads Nonspecific T wave abnormality has replaced inverted T waves in Inferior leads Nonspecific T wave abnormality, worse in Anterolateral leads Confirmed by CHAYITO SANDHU MD ([id number]) on 10/06/2020 6:06:52 PM Electronically Signed By: CHAYITO SANDHU MD 10/06/201806 PATIENT NAME: ISA MITCHELL Electrocardiogram DATE OF : 49 PHYSICIAN: CHAYITO SANDHU MD REPORT #: [id number] REPORT IS CONFIDENTIAL AND NOT TO BE RELEASED WITHOUT AUTHORIZATION
== END 2020-10-05 19:32 | disposition home or self-care (01) ==
LOC: ED 17:11
DX: R30.0 Dysuria (principal); E87.1 Hypo-osmolality and hyponatremia; E03.9 Hypothyroidism, unspecified; I48.91 Unspecified atrial fibrillation; Z88.8 Allergy status to other drugs, medicaments and biological substances; Z88.1 Allergy status to other antibiotic agents; Z88.0 Allergy status to penicillin; Z79.899 Other long term (current) drug therapy
CPT/HCPCS: 51701; 71045; 80053; 81001; 83690; 83735; 84484; 85025; 93005; 93010; 99284-25

== ENCOUNTER 2020-10-16 09:02 | Emergency (ER) | payer MEDICARE, OTHER ==
[~2020-10-16] VITALS: Ht 180.3 cm; Wt 76.2 kg
[~2020-10-16 09:02] MED LIST changes: +PROPAFENONE HC150 MG PO
--- OUTSIDE RECORDS SUMMARY | 2020-10-16 09:06 | XMS ---
PreManage Notification: ISA MITCHELL Security Marketing Communications Coordinator Events No recent Security Events currently on file CRITERIA MET - PDMP - [facility] - 2 Visits in 30 Days - 6 ED Visits in 6 Months CARE PROVIDERS CHERIE HUTCHINS [facility] 08/04/2020-Current PHONE: [phone] JAVIER SOLOMON Nurse Practitioner: Family Current PHONE: [phone] Harris has no Care Guidelines for this patient. Care History Medical/Surgical 10/06/2020 [facility] - BRAVO CARDIAC PHYSICAL BIOCHEMIST NOTIFIED OF PATIENT ED VISITS- SUGGESTED CLOSE FOLLOW UP WITH PCP DR HUTCHINS AND MACHINIST CLASS B. - AN APT HAS BEEN SCHEDULED WITH DR HUTCHINS OFFICE ON 10/14/20 FOR FOLLOW UP TO RECENT ED VISIT. 08/05/2020 [facility] - MACHINIST CLASS B[facility]- DR CIARA PINK - DUE TO RECENT ED VISITS- PANIC ATTACKS DUE TO MEDICATION CHANGE- PER SUPERVISOR HOME ECONOMICS MACHINIST CLASS B AT [facility] PATIENT WAS TO STOP MEDICATION LISTED BELOW: -BISOPROLOL FUMARATE 2.5 MG PO DAILY \T\nbsp; BISOPROLOL FUMARATE 2.5 MG PO DAILY\T\nbsp; #15 TABLET Prov:\T\nbsp;\T\nbsp;\T\nbsp;\T\nbsp;\T\nbsp; 07/25/20 - ELECTROCARDIOLOGIST- REFERRED- [place] [facility]- August - DR JABIER GUERIN E.D. VISIT COUNT (12 MO.) 1 [place] [facility] TOTAL 7 NOTE: Visits indicate total known visits. ED/UCC VISIT TRACKING (12 MO.) 10/16/2020 09:03 [facility] [place] TYPE: Emergency COMPLAINT: - EYE PAIN 10/05/2020 17:12 [facility] [place] TYPE: Emergency COMPLAINT: - HIGH BP, RAPID HEART RATE, URINE PROBLEM DIAGNOSES: - Other exterminator helper (current) drug therapy - Dysuria - Unspecified atrial fibrillation - Hypothyroidism, unspecified - Allergy status to penicillin - Allergy status to other drugs, medicaments and biological substances - Allergy status to other antibiotic agents - Hypo-osmolality and hyponatremia 09/05/2020 16:54 [place] TYPE: Emergency DIAGNOSES: - Polyuria - Dysuria - Unspecified abdominal pain - EMS; Polyuria; RM? - Chest pain, unspecified - Abdominal Pain 08/13/2020 18:23 [facility] [place] TYPE: Emergency COMPLAINT: - RAPID HEART RATE,CHEST PAIN DIAGNOSES: - Allergy status to other antibiotic agents - Allergy status to penicillin - Unspecified atrial fibrillation - Allergy status to sulfonamides - Other exterminator helper (current) drug therapy - Hypothyroidism, unspecified - Allergy status to other drugs, medicaments and biological substances 08/01/2020 19:[address] [facility] [place] [address] TYPE: Emergency COMPLAINT: - CHEST PAIN,WEAKNESS DIAGNOSES: - Allergy status to other drugs, medicaments and biological substances - Allergy status to penicillin - Hypothyroidism, unspecified - Other halfway (current) drug therapy - Palpitations - Allergy status to sulfonamides - Allergy status to other antibiotic agents 07/22/2020 10:[address] [facility] [address] TYPE: Emergency COMPLAINT: - HIGH HEART RATE, HIGH B/P 02/15/2020 08:[address] [facility] [address] TYPE: Emergency COMPLAINT: - CHEST PAIN DIAGNOSES: - Other halfway (current) drug therapy - Hypothyroidism, unspecified - Allergy status to penicillin - Chest pain, unspecified - Allergy status to other drugs, medicaments and biological substances - Allergy status to other drugs, medicaments and biological substances INPATIENT VISIT TRACKING (12 MO.) 07/24/2020 11:[address] [facility] [place] TYPE: Medical Surgical COMPLAINT: - A. FLUTTER DIAGNOSES: - senior care (current) use of aspirin - Unspecified [...] Urinary tract infection, site not specified - terminal operator (current) use of aspirin - Sleep apnea, unspecified - Other exterminator helper (current) drug therapy - Acquired absence of [...] - Allergy status to sulfonamides - Other halfway (current) drug therapy - Unspecified adrenocortical insufficiency - Hypothyroidism, unspecified [email or web address]
== END 2020-10-16 12:00 | disposition home or self-care (01) ==
LOC: ED 09:02
DX: K04.7 Periapical abscess without sinus (principal); H53.142 Visual discomfort, left eye; E03.9 Hypothyroidism, unspecified; I48.91 Unspecified atrial fibrillation; I48.92 Unspecified atrial flutter; Z88.8 Allergy status to other drugs, medicaments and biological substances; Z88.1 Allergy status to other antibiotic agents; Z88.0 Allergy status to penicillin; Z79.899 Other long term (current) drug therapy
CPT/HCPCS: 70486; 99283-25

== ENCOUNTER 2020-12-03 18:23 | Emergency (ER) | payer MEDICARE, OTHER ==
[~2020-12-03] VITALS: Ht 180.3 cm; Wt 76.2 kg
--- OUTSIDE RECORDS SUMMARY | 2020-12-03 18:28 | XMS ---
PreManage Notification: ISA MITCHELL Security Enrollment Nurse Events No recent Security Events currently on file CRITERIA MET - 6 ED Visits in 6 Months - PDMP CARE PROVIDERS CHERIE HUTCHINS [facility] 08/04/2020-Current PHONE: [phone] JAVIER SOLOMON Nurse Practitioner: Family Current PHONE: [phone] Harris has no Care Guidelines for this patient. Care History Medical/Surgical 10/06/2020 [facility] - BRAVO CARDIAC MACHINE STONECUTTER NOTIFIED OF PATIENT ED VISITS- SUGGESTED CLOSE FOLLOW UP WITH PCP DR HUTCHINS AND PHARMACY AFFAIRS ASSISTANT. - AN APT HAS BEEN SCHEDULED WITH DR HUTCHINS OFFICE ON 10/14/20 FOR FOLLOW UP TO RECENT ED VISIT. 08/05/2020 [facility] - PHARMACY AFFAIRS ASSISTANT-[facility]- [facility]- DR CIARA PINK - DUE TO RECENT ED VISITS- PANIC ATTACKS DUE TO MEDICATION CHANGE- PER INTERNAL CONTROL MANAGER PHARMACY AFFAIRS ASSISTANT AT [facility] PATIENT WAS TO STOP MEDICATION LISTED BELOW: -BISOPROLOL FUMARATE 2.5 MG PO DAILY \T\nbsp; BISOPROLOL FUMARATE 2.5 MG PO DAILY\T\nbsp; #15 TABLET Prov:\T\nbsp;\T\nbsp;\T\nbsp;\T\nbsp;\T\nbsp; 07/25/20 - ELECTROCARDIOLOGIST- REFERRED- [place] [facility]- August - DR JABIER GUERIN E.D. VISIT COUNT (12 MO.) 1 [place] [facility] TOTAL 8 NOTE: Visits indicate total known visits. ED/UCC VISIT TRACKING (12 MO.) 12/03/2020 18:25 [facility] [place] TYPE: Emergency COMPLAINT: - URINE PROBLEM 10/16/2020 09:03 CRISTIAN Estrada TYPE: Emergency COMPLAINT: - DENTAL PAIN DIAGNOSES: - Unspecified atrial flutter - Other residential (current) drug therapy - Periapical abscess without sinus - Unspecified atrial fibrillation - Allergy status to other drugs, medicaments and biological substances - Allergy status to other antibiotic agents - Other specified disorders of teeth and supporting structures - Visual discomfort, left eye - Allergy status to penicillin - Hypothyroidism, unspecified 10/05/2020 17:12 CRISTIAN Estrada TYPE: Emergency COMPLAINT: - HIGH BP, RAPID HEART RATE, URINE PROBLEM DIAGNOSES: - Other terminal manager (current) drug therapy - Dysuria - Unspecified atrial fibrillation - Hypothyroidism, unspecified - Allergy status to penicillin - Allergy status to other drugs, medicaments and biological substances - Allergy status to other antibiotic agents - Hypo-osmolality and hyponatremia 09/05/2020 16:54 [place] TYPE: Emergency DIAGNOSES: - Polyuria - Dysuria - Unspecified abdominal pain - EMS; Polyuria; RM? - Chest pain, unspecified - Abdominal Pain 08/13/2020 18:23 [facility] [place] TYPE: Emergency COMPLAINT: - RAPID HEART RATE,CHEST PAIN DIAGNOSES: - Allergy status to other antibiotic agents - Allergy status to penicillin - Unspecified atrial fibrillation - Allergy status to sulfonamides - Other terminal manager (current) drug therapy - Hypothyroidism, unspecified - Allergy status to other drugs, medicaments and biological substances 08/01/2020 19:57 [facility] [place] TYPE: Emergency COMPLAINT: - CHEST PAIN,WEAKNESS DIAGNOSES: - Allergy status to other drugs, medicaments and biological substances - Allergy status to penicillin - Hypothyroidism, unspecified - Other residential (current) drug therapy - Palpitations - Allergy status to sulfonamides - Allergy status to other antibiotic agents 07/22/2020 10:30 [facility] [place] TYPE: Emergency COMPLAINT: - HIGH HEART RATE, HIGH B/P 02/15/2020 08:01 [facility] [place] TYPE: Emergency COMPLAINT: - CHEST PAIN DIAGNOSES: - Other residential (current) drug therapy - Hypothyroidism, unspecified - Allergy status to penicillin - Chest pain, unspecified - Allergy status to other drugs, medicaments and biological substances - Allergy status to other drugs, medicaments and biological substances INPATIENT VISIT TRACKING (12 MO.) 07/24/2020 11:15 [facility] [place] TYPE: Medical Surgical COMPLAINT: - A. FLUTTER DIAGNOSES: - [facility] (current) use of aspirin - Unspecified atrial [...] Urinary tract infection, site not specified - [facility] (current) use of aspirin - Sleep apnea, unspecified - Other terminal manager (current) drug therapy - Acquired absence of [...] - Allergy status to sulfonamides - Other terminal manager (current) drug therapy - Unspecified adrenocortical insufficiency - Hypothyroidism, unspecified [email or web address]
[2020-12-03] MEDS ORDERED: MEGA TAURINE1000 MG PO (18:50)
[2020-12-03] MEDS ORDERED: DEPLIN-ALGAL O1 EAC1 PO (18:50)
[2020-12-03] MEDS ORDERED: COQ-1030 MG PO (18:51)
[2020-12-03] MEDS ORDERED: L-METHYLFOLATE15 MG PO (18:53)
[2020-12-03] MEDS ORDERED: CEPHALEXIN500 MG PO (22:43)
--- NOTE | 2020-12-04 14:35 | EKG ---
[facility] [address] [facility] [place] [address] Signed Normal sinus rhythm Rightward axis ST \T\ T wave abnormality, consider inferior ischemia Abnormal ECG When compared with ECG of 05-OCT-2020 17:19, premature supraventricular complexes are no longer present Confirmed by RAHEEL FOWLER MD ([id number]) on 12/04/2020 2:34:54 PM Electronically Signed By: RAHEEL FOWLER MD 12/04/20 1435 PATIENT NAME: ADRIANAMARJORIEISA Electrocardiogram DATE OF : 49 PHYSICIAN: RAHEEL FOWLER MD REPORT #: [id number] REPORT IS CONFIDENTIAL AND NOT TO BE RELEASED WITHOUT AUTHORIZATION
== END 2020-12-03 23:03 | disposition home or self-care (01) ==
LOC: ED 18:23
DX: N39.0 Urinary tract infection, site not specified (principal); E03.9 Hypothyroidism, unspecified; I48.91 Unspecified atrial fibrillation; I48.92 Unspecified atrial flutter; Z88.8 Allergy status to other drugs, medicaments and biological substances; Z88.2 Allergy status to sulfonamides; Z88.1 Allergy status to other antibiotic agents; Z88.0 Allergy status to penicillin; Z79.899 Other long term (current) drug therapy
CPT/HCPCS: 71045; 80053; 81001; 83690; 84484; 85025; 87088; 93005; 93010; 96374; 99284-25; J0696

== ENCOUNTER 2020-12-20 05:57 | Emergency (ER) | payer MEDICARE, OTHER ==
[~2020-12-20] VITALS: Ht 180.3 cm; Wt 76.2 kg
[~2020-12-20 05:57] MED LIST changes: +COQ-1030 MG PO; +DEPLIN-ALGAL O1 EAC1 PO; +L-METHYLFOLATE15 MG PO
--- OUTSIDE RECORDS SUMMARY | 2020-12-20 06:02 | XMS ---
PreManage Notification: ISA MITCHELL Security [employer] Events No recent Security Events currently on file CRITERIA MET - PDMP - [facility] - 2 Visits in 30 Days - 6 ED Visits in 6 Months CARE PROVIDERS CHERIE HUTCHINS [facility] 08/04/2020-Current PHONE: [phone] JAVIER SOLOMON Nurse Practitioner: Family Current PHONE: [phone] Harris has no Care Guidelines for this patient. Care History Medical/Surgical 10/06/2020 [facility] - BRAVO CARDIAC PRESCRIPTION EYEGLASS MAKER NOTIFIED OF PATIENT ED VISITS- SUGGESTED CLOSE FOLLOW UP WITH PCP DR HUTCHINS AND COUNTRY SALES MANAGER. - AN APT HAS BEEN SCHEDULED WITH DR HUTCHINS OFFICE ON 10/14/20 FOR FOLLOW UP TO RECENT ED VISIT. 08/05/2020 [facility] - COUNTRY SALES MANAGER[facility]- DR CIARA PINK - DUE TO RECENT ED VISITS- PANIC ATTACKS DUE TO MEDICATION CHANGE- PER PROFESSOR OF RADIOLOGY COUNTRY SALES MANAGER AT [facility] PATIENT WAS TO STOP MEDICATION LISTED BELOW: -BISOPROLOL FUMARATE 2.5 MG PO DAILY \T\nbsp; BISOPROLOL FUMARATE 2.5 MG PO DAILY\T\nbsp; #15 TABLET Prov:\T\nbsp;\T\nbsp;\T\nbsp;\T\nbsp;\T\nbsp; 07/25/20 - ELECTROCARDIOLOGIST- REFERRED- [place] [facility] CARDIOLOGY- August - DR JABIER GUERIN E.D. VISIT COUNT (12 MO.) 1 Tory Meza TOTAL 9 NOTE: Visits indicate total known visits. ED/UCC VISIT TRACKING (12 MO.) 12/20/2020 06:00 [facility] [place] TYPE: Emergency COMPLAINT: - HIGH PULSE RATE 12/03/2020 18:25 [facility] [place] TYPE: Emergency COMPLAINT: - URINE PROBLEM DIAGNOSES: - Hypothyroidism, unspecified - Allergy status to other drugs, medicaments and biological substances - Allergy status to sulfonamides - Unspecified atrial fibrillation - Urinary tract infection, site not specified - Allergy status to other antibiotic agents - Allergy status to penicillin - Frequency of micturition - Unspecified atrial flutter - Other alf (current) drug therapy 10/16/2020 09:03 [facility] [place] TYPE: Emergency COMPLAINT: - DENTAL PAIN DIAGNOSES: - Unspecified atrial flutter - Other alf (current) drug therapy - Periapical abscess without sinus - Unspecified atrial fibrillation - Allergy status to other drugs, medicaments and biological substances - Allergy status to other antibiotic agents - Other specified disorders of teeth and supporting structures - Visual discomfort, left eye - Allergy status to penicillin - Hypothyroidism, unspecified 10/05/2020 17:12 [facility] [place] TYPE: Emergency COMPLAINT: - HIGH BP, RAPID HEART RATE, URINE PROBLEM DIAGNOSES: - Other alf (current) drug therapy - Dysuria - Unspecified atrial fibrillation - Hypothyroidism, unspecified - Allergy status to penicillin - Allergy status to other drugs, medicaments and biological substances - Allergy status to other antibiotic agents - Hypo-osmolality and hyponatremia [facility] [facility] DIAGNOSES: - Polyuria - Dysuria - Unspecified abdominal pain - EMS; Polyuria; RM? - Chest pain, unspecified - Abdominal Pain 08/13/2020 18:23 [facility] [place] TYPE: Emergency COMPLAINT: - RAPID HEART RATE,CHEST PAIN DIAGNOSES: - Allergy status to other antibiotic agents - Allergy status to penicillin - Unspecified atrial fibrillation - Allergy status to sulfonamides - Other alf (current) drug therapy - Hypothyroidism, unspecified - Allergy status to other drugs, medicaments and biological substances 08/01/2020 19:57 [facility] [place] TYPE: Emergency COMPLAINT: - CHEST PAIN,WEAKNESS DIAGNOSES: - Allergy status to other drugs, medicaments and biological substances - Allergy status to penicillin - Hypothyroidism, unspecified - Other alf (current) drug therapy - Palpitations - Allergy status to sulfonamides - Allergy status to other antibiotic agents 07/22/2020 10:30 [facility] [place] TYPE: Emergency COMPLAINT: - HIGH HEART RATE, HIGH B/P 02/15/2020 08:01 [facility] [place] TYPE: Emergency COMPLAINT: - CHEST PAIN DIAGNOSES: - Other alf (current) drug therapy - Hypothyroidism, unspecified - Allergy status to penicillin - Chest pain, unspecified - Allergy status to other drugs, medicaments and biological substances - Allergy status to other drugs, medicaments and biological substances INPATIENT VISIT TRACKING (12 MO.) 07/24/2020 11:15 [facility] [place] TYPE: Medical Surgical COMPLAINT: - A. FLUTTER DIAGNOSES: - watermaster (current) use of aspirin - Unspecified atrial [...] Urinary tract infection, site not specified - watermaster (current) use of aspirin - Sleep apnea, unspecified - Other marine oil terminal superintendent (current) drug therapy - Acquired absence of [...] - Allergy status to sulfonamides - Other marine oil terminal superintendent (current) drug therapy - Unspecified adrenocortical insufficiency - Hypothyroidism, unspecified [email or web address]
[2020-12-20] MEDS ORDERED: GABAPENTIN300 MG PO (16:03)
--- NOTE | 2020-12-20 19:03 | EKG ---
[facility] [address] [place], [place] [address] Signed Sinus tachycardia Rightward axis Anterior infarct , age undetermined ST \T\ T wave abnormality, consider inferolateral ischemia Abnormal ECG No previous ECGs available Confirmed by CHAYITO SANDHU MD ([id number]) on 12/20/2020 7:03:50 PM Electronically Signed By: CHAYITO SANDHU MD 12/20/20 1903 PATIENT NAME: ISA MITCHELL Electrocardiogram DATE OF : 49 PHYSICIAN: CHAYITO SANDHU MD REPORT #: [id number] REPORT IS CONFIDENTIAL AND NOT TO BE RELEASED WITHOUT AUTHORIZATION
--- NOTE | 2020-12-20 19:04 | EKG ---
[facility] [address] [place] [address] Signed Sinus tachycardia Rightward axis Anterior infarct (cited on or before 20-DEC-2020) ST \T\ T wave abnormality, consider inferior ischemia Abnormal ECG When compared with ECG of 20-DEC-2020 06:12, (Unconfirmed) T wave inversion no longer evident in Lateral leads Confirmed by CHAYITO SANDHU MD ([id number]) on 12/20/2020 7:04:00 PM Electronically Signed By: CHAYITO SANDHU MD 12/20/20 1904 PATIENT NAME: ISA MITCHELL Electrocardiogram DATE OF : 49 PHYSICIAN: CHAYITO SANDHU MD REPORT #: [id number] REPORT IS CONFIDENTIAL AND NOT TO BE RELEASED WITHOUT AUTHORIZATION
== END 2020-12-20 16:33 | disposition home or self-care (01) ==
LOC: ED 05:57
DX: R00.0 Tachycardia, unspecified (principal); E03.9 Hypothyroidism, unspecified; G62.9 Polyneuropathy, unspecified; I48.91 Unspecified atrial fibrillation; I48.92 Unspecified atrial flutter; Z88.2 Allergy status to sulfonamides; Z88.1 Allergy status to other antibiotic agents; Z91.048 Other nonmedicinal substance allergy status; Z91.041 Radiographic dye allergy status; Z88.0 Allergy status to penicillin; Z91.018 Allergy to other foods; Z79.899 Other long term (current) drug therapy
CPT/HCPCS: 71045; 80053; 81001; 83735; 84443; 84484; 85025; 85379; 93005; 93010; 96374; 96375; 96376; 99285-25; G0480; J2060; J2405; J7030; J7121

== ENCOUNTER 2020-12-22 10:19 | Emergency (ER) | payer MEDICARE, OTHER ==
[~2020-12-22] VITALS: Ht 180.3 cm; Wt 76.2 kg
[~2020-12-22 10:19] MED LIST changes: +GABAPENTIN300 MG PO
--- OUTSIDE RECORDS SUMMARY | 2020-12-22 10:22 | XMS ---
PreManage Notification: ISA MITCHELL Security Activity Aid Events No recent Security Events currently on file CRITERIA MET - [facility] - 2 Visits in 30 Days - 6 ED Visits in 6 Months - PDMP CARE PROVIDERS CHERIE HUTCHINS [facility] 08/04/2020-Current PHONE: [phone] JAVIER SOLOMON Nurse Practitioner: Current PHONE: [phone] Harris has no Care Guidelines for this patient. Care History Medical/Surgical 10/06/2020 [facility] - BRAVO CARDIAC GUARD IMMIGRATION NOTIFIED OF PATIENT ED VISITS- SUGGESTED CLOSE FOLLOW UP WITH PCP DR HUTCHINS AND CRANE HOOKER. - AN APT HAS BEEN SCHEDULED WITH DR HUTCHINS OFFICE ON 10/14/20 FOR FOLLOW UP TO RECENT ED VISIT. 08/05/2020 [facility] - CRANE HOOKER-[facility]- [facility]- DR CIARA PINK - DUE TO RECENT ED VISITS- PANIC ATTACKS DUE TO MEDICATION CHANGE- PER HOROLOGIST APPRENTICE CRANE HOOKER AT [facility] PATIENT WAS TO STOP MEDICATION LISTED BELOW: -BISOPROLOL FUMARATE 2.5 MG PO DAILY \T\nbsp; BISOPROLOL FUMARATE 2.5 MG PO DAILY\T\nbsp; #15 TABLET Prov:\T\nbsp;\T\nbsp;\T\nbsp;\T\nbsp;\T\nbsp; 07/25/20 - ELECTROCARDIOLOGIST- REFERRED- [place] [facility] [facility] C[facility]IOLOG[facility]- August - DR JABIER GUERIN E.D. VISIT COUNT (12 MO.) 1 Tory Meza TOTAL 10 NOTE: Visits indicate total known visits. ED/UCC VISIT TRACKING (12 MO.) 12/22/2020 10:20 [facility] [place] TYPE: Emergency COMPLAINT: - HIGH HEART RATE, CHOOTING PAIN HEADACHE, NAUSEA 12/20/2020 06:00 [facility] DudleyStreeter Didi[facility]le [place] TYPE: Emergency COMPLAINT: - HIGH PULSE RATE 12/03/2020 18:25 [facility] Bello DidiMichelle [place] TYPE: Emergency COMPLAINT: - URINE PROBLEM DIAGNOSES: - Hypothyroidism, unspecified - Allergy status to other drugs, medicaments and biological substances - Allergy status to sulfonamides - Unspecified atrial fibrillation - Urinary tract infection, site not specified - Allergy status to other antibiotic agents - Allergy status to penicillin - Frequency of micturition - Unspecified atrial flutter - Other watermaster (current) drug therapy 10/16/2020 09:03 C[facility]ST[facility] Hernandezsury TolbertMichelle [place] TYPE: Emergency COMPLAINT: - DENTAL PAIN DIAGNOSES: - Unspecified atrial flutter - Other watermaster (current) drug therapy - Periapical abscess without [...] HEART RATE, URINE PROBLEM DIAGNOSES: - Other nursing home (current) drug therapy - Dysuria - Unspecified atrial fibrillation - Hypothyroidism, unspecified - Allergy status to penicillin - Allergy status to other drugs, medicaments and biological substances - Allergy status to other antibiotic agents - Hypo-osmolality and hyponatremia 09/05/2020 16:54 [facility] Fletcher JONES TYPE: Emergency DIAGNOSES: - Polyuria - Dysuria - Unspecified abdominal pain - EMS; Polyuria; RM? - Chest pain, unspecified - Abdominal Pain 08/13/2020 18:23 [facility] [place] TYPE: Emergency COMPLAINT: - RAPID HEART RATE,CHEST PAIN DIAGNOSES: - Allergy status to other antibiotic agents - Allergy status to penicillin - Unspecified atrial fibrillation - Allergy status to sulfonamides - Other nursing home (current) drug therapy - Hypothyroidism, unspecified - Allergy status to other drugs, medicaments and biological substances 08/01/2020 19:57 CRISTIAN Hernandezony Albert [place] TYPE: Emergency COMPLAINT: - CHEST PAIN,WEAKNESS DIAGNOSES: - Allergy status to other drugs, medicaments and biological substances - Allergy status to penicillin - Hypothyroidism, unspecified - Other watermaster (current) drug therapy - Palpitations - Allergy status to sulfonamides - Allergy status to other antibiotic agents 07/22/2020 10:30 [facility] [place] TYPE: Emergency COMPLAINT: - HIGH HEART RATE, HIGH B/P 02/15/2020 08:01 [facility] [place] TYPE: Emergency COMPLAINT: - CHEST PAIN DIAGNOSES: - Other watermaster (current) drug therapy - Hypothyroidism, unspecified - Allergy status to penicillin - Chest pain, unspecified - Allergy status to other drugs, medicaments and biological substances - Allergy status to other drugs, medicaments and biological substances INPATIENT VISIT TRACKING (12 MO.) 07/24/2020 11:[address] [facility] [place] TYPE: Medical Surgical COMPLAINT: - A. FLUTTER DIAGNOSES: - alf (current) use of aspirin - Unspecified atrial [...] Urinary tract infection, site not specified - alf (current) use of aspirin - Sleep apnea, unspecified - Other watermaster (current) drug therapy - Acquired absence of [...] - Allergy status to sulfonamides - Other watermaster (current) drug therapy - Unspecified adrenocortical insufficiency - Hypothyroidism, unspecified [email or web address]
[2020-12-22] MEDS ORDERED: ONDANSETRON HCL4 MG PO (10:42)
--- NOTE | 2020-12-23 10:33 | NUR ---
ED follow up call requested by Nazanin SOLANO. Reviewed her last several visits. No history of HF. I called her and she spoke for 19 minutes on phone. She is a good historian. She had Covid in Jan and has been followed by Dr Wang and an EP floor care specialist in [place]. She keeps a list of medications and uses 7 day pill container. She puts her meds in an insulated bag daily to carry in her purse. Denies missed medications and denies problems paying for or obtaining medications. Seems to have strong social support. Eats organic and doesn't drink alcohol. She is also doing PT routinely. She has temporarily stopped taking Taurine for her neuropathy and wants to restart. I asked her to discuss any med or supplement changes with PCP or Cardiology. She is frustrated that she had labs done with Endocronologist at [facility] and does not have f/u until Feb. She said PCP or Cardiology has not received these labs. She has follow up today with Dr Barrett so I have called [facility] and requested these results be faxed this AM to her.
--- NOTE | 2020-12-24 13:21 | EKG ---
[facility] [address] [place] [address] Signed Sinus rhythm with premature supraventricular complexes Rightward axis Pulmonary disease pattern Abnormal QRS-T angle, consider primary T wave abnormality Abnormal ECG When compared with ECG of 20-DEC-2020 13:45, premature supraventricular complexes are now present T wave amplitude has increased in Anterior leads Confirmed by CHAYITO SANDHU MD ([id number]) on 12/24/2020 1:21:05 PM Electronically Signed By: CHAYITO SANDHU MD 12/24/20 1321 PATIENT NAME: ISA MITCHELL Electrocardiogram DATE OF : 49 PHYSICIAN: CHAYITO SANDHU MD REPORT #: [id number] REPORT IS CONFIDENTIAL AND NOT TO BE RELEASED WITHOUT AUTHORIZATION
== END 2020-12-22 12:17 | disposition home or self-care (01) ==
LOC: ED 10:19
DX: I48.91 Unspecified atrial fibrillation (principal); E03.9 Hypothyroidism, unspecified; I48.92 Unspecified atrial flutter; G62.9 Polyneuropathy, unspecified; Z88.0 Allergy status to penicillin; Z88.2 Allergy status to sulfonamides; Z91.048 Other nonmedicinal substance allergy status; Z88.1 Allergy status to other antibiotic agents; Z91.041 Radiographic dye allergy status; Z79.899 Other long term (current) drug therapy
CPT/HCPCS: 93005; 93010; 99284-25

== ENCOUNTER 2022-03-08 12:12 | Emergency (ER) | payer MEDICARE, OTHER ==
[~2022-03-08] VITALS: Ht 180.3 cm; Wt 76.2 kg
[~2022-03-08 12:12] MED LIST changes: +ONDANSETRON HCL4 MG PO
[2022-03-08] MEDS ORDERED: PROPAFENONE HC150 MG PO (12:46)
[2022-03-08] MEDS ORDERED: PREDNISONE20 MG PO (15:22)
== END 2022-03-08 15:36 | disposition home or self-care (01) ==
LOC: ED 12:12
DX: M54.12 Radiculopathy, cervical region (principal); E03.9 Hypothyroidism, unspecified; I48.91 Unspecified atrial fibrillation; Z88.8 Allergy status to other drugs, medicaments and biological substances; Z88.2 Allergy status to sulfonamides; Z88.1 Allergy status to other antibiotic agents; Z88.0 Allergy status to penicillin; Z79.899 Other long term (current) drug therapy
CPT/HCPCS: 99283; J7512

== ENCOUNTER 2023-10-23 14:00 | Emergency (ER) | payer OTHER ==
[~2023-10-23] VITALS: Ht 180.3 cm; Wt 83.3 kg
[~2023-10-23 14:00] MED LIST changes: +PREDNISONE20 MG PO
[2023-10-23 14:24] LABS: BASOPHILS 0.3 % (0-2); EOSINOPHILS 0.8 % (0-6); HEMATOCRIT 43.2 % (35.0-50.0); HEMOGLOBIN 14.5 g/dL (12.0-18.0); LYMPHOCYTES 13.8 % (24-44); MCH 31.7 (27-36); MCHC 33.6 g/dl (30-36); MCV 94.5 fl (81-99); MONOCYTES 7.9 % (0-12); NEUTROPHILS 77.2 % (39-80); PLATELET COUNT 293 K/uL (140-440); RBC 4.57 M/ul (4.3-5.7); RDW 13.9 (10.5-15.0)
[2023-10-23] MEDS ORDERED: SODIUM CHLORIDE 0.9% 500 ML IV PRN (14:30)
[2023-10-23] MEDS ORDERED: dilTIAZem HCL 25 MG/5 ML VIAL IV ONE (14:30)
[2023-10-23] MEDS ORDERED: dilTIAZem HCL 30 MG TAB PO ONE (14:45)
[2023-10-23 14:47] LABS: ALBUMIN 3.7 g/dL (3.4-5.0); ALBUMIN/GLOBULIN RATIO 1.12 (1.1-2.4); ANION GAP 13.1 (7-21); BILIRUBIN, TOTAL 0.7 ng/dL (0.2-1.0); BUN/CREATININE RATIO 24.74 (6.0-28.6); CALCIUM 8.8 mg/dL (8.5-10.1); CREATININE, SERUM 0.97 mg/dL (0.55-1.02); POTASSIUM 4.1 mmol/L (3.5-5.1)
[2023-10-23 15:06] LABS: BILIRUBIN, URINE NEGATIVE (negative); BLOOD/HGB, URINE NEGATIVE (Negative); KETONE, URINE NEGATIVE (Negative); LEUK ESTERASE, URINE NEGATIVE (negative); NITRITE, URINE NEGATIVE (negative)
[2023-10-23 15:12] LABS: CRYSTALS, URINE NONE SEEN (0-1+); EPITHELIAL CELLS, URINE SQUAMOUS 1+ /lpf (0-1+); RED BLOOD CELLS, URINE 0-1 /hpf (0-5); WHITE BLOOD CELLS, URINE 0-1 /HPF (0-5)
[2023-10-23 15:13] LABS: BACTERIA, URINE NONE SEEN /hpf (negative); CASTS, URINE NONE SEEN \\lpf; COLLECTION TYPE, URINE CLEAN CATCH; REFLEX CULTURE, URINE No (No)
[2023-10-23 15:29] VITALS: BP 143/79
--- NOTE | 2023-10-26 09:57 | EKG ---
[facility] [address] [facility] [place] [address] Signed Atrial flutter with variable AV block Possible Anterior infarct , age undetermined ST \T\ T wave abnormality, consider lateral ischemia Abnormal ECG When compared with ECG of 22-DEC-2020 10:37, Atrial flutter has replaced Sinus rhythm ST now depressed in Inferior leads ST now depressed in Anterolateral leads T wave inversion more evident in Inferior leads T wave inversion now evident in Lateral leads Confirmed by ARTURO BUSH MD ([id number]) on 10/26/2023 9:57:38 AM Electronically Signed By: ARTURO BUSH 10/26/23 0957 PATIENT NAME: ISA MITCHELL Electrocardiogram DATE OF : 49 PHYSICIAN: ARTURO BUSH REPORT #: [id number] REPORT IS CONFIDENTIAL AND NOT TO BE RELEASED WITHOUT AUTHORIZATION
== END 2023-10-23 15:29 | disposition home or self-care (01) ==
LOC: ED 14:00
PROVIDERS: Emergency Medicine
DX: I48.91 Unspecified atrial fibrillation (principal); E03.9 Hypothyroidism, unspecified; I48.92 Unspecified atrial flutter; Z88.8 Allergy status to other drugs, medicaments and biological substances; Z88.1 Allergy status to other antibiotic agents; Z88.0 Allergy status to penicillin; Z79.899 Other long term (current) drug therapy
CPT/HCPCS: 36415; 71045; 80053; 81001; 84484; 85025; 96374; 99285-25; J7040

== ENCOUNTER 2023-12-12 18:30 | Emergency (ER) | payer MEDICARE ==
[~2023-12-12] VITALS: Ht 180.3 cm; Wt 80.0 kg
[2023-12-12] MEDS ORDERED: ELIQUIS5 MG PO (19:08)
[2023-12-12] MEDS ORDERED: ESTROGEL50 GM TD (19:08)
[2023-12-12] MEDS ORDERED: ZOLPIDEM TARTRAT5 MG PO (19:09)
[2023-12-12 19:17] LABS: BILIRUBIN, URINE NEGATIVE (negative); BLOOD/HGB, URINE NEGATIVE (Negative); KETONE, URINE NEGATIVE (Negative); LEUK ESTERASE, URINE NEGATIVE (negative); NITRITE, URINE NEGATIVE (negative)
[2023-12-12 20:24] LABS: INFLUENZA B NAA NEGATIVE (NEGATIVE); RESPIRATORY SYNCYTIAL VIR NAA NEGATIVE (NEGATIVE)
[2023-12-12 21:16] LABS: RBC, WET MOUNT NEGATIVE (NEGATIVE); WBC, WET MOUNT NEGATIVE (NEGATIVE)
[2023-12-12 21:17] LABS: CLUE CELLS, WET MOUNT NEGATIVE (NEGATIVE); EPITHELIAL CELLS, WET MOUNT 3+ (NEGATIVE); TRICHOMONAS, WET MOUNT NEGATIVE (NEGATIVE); YEAST, WET MOUNT NEGATIVE (NEGATIVE)
[2023-12-12 21:18] LABS: BACTERIA, WET MOUNT 2+ (NEGATIVE)
[2023-12-12 21:20] LABS: SOURCE, WET MOUNT NOT STATED
[2023-12-12] MEDS ORDERED: ACETAMINOPHEN 500 MG TAB PO ONE (22:00)
[2023-12-12 22:02] VITALS: BP 149/75
[2023-12-12 22:31] LABS: N. GONORRRHOEAE BY PCR NOT DETECTED (NOT DETECT)
== END 2023-12-12 22:14 | disposition home or self-care (01) ==
LOC: ED 18:30
PROVIDERS: Emergency Medicine; Internal Medicine
DX: B34.9 Viral infection, unspecified (principal); J04.0 Acute laryngitis; Z88.8 Allergy status to other drugs, medicaments and biological substances; Z88.1 Allergy status to other antibiotic agents; Z88.0 Allergy status to penicillin; Z79.01 Long term (current) use of anticoagulants; Z79.899 Other long term (current) drug therapy; Z11.52 Encounter for screening for COVID-19
CPT/HCPCS: 81003; 87210; 87502; 87651; A9270; U0002

== ENCOUNTER 2024-01-18 11:58 | Emergency (ER) | payer MEDICARE ==
[~2024-01-18] VITALS: Ht 180.3 cm; Wt 80.0 kg
[~2024-01-18 11:58] MED LIST changes: +ESTROGEL50 GM TD; +ZOLPIDEM TARTRAT5 MG PO
[2024-01-18] MEDS ORDERED: VERAPAMIL SR180 MG PO (12:07)
[2024-01-18] MEDS ORDERED: MORPHINE SULFATE 4 MG/ML VIAL IV ONE (12:30)
[2024-01-18] MEDS ORDERED: ondansetron HCL 4 MG/2 ML VIAL IV ONE (12:30)
[2024-01-18 12:32] LABS: BASOPHILS 0.7 % (0-2); EOSINOPHILS 4.9 % (0-6); HEMATOCRIT 42.7 % (35.0-50.0); LYMPHOCYTES 13.6 % (24-44); MCH 31.2 (27-36); MCHC 32.7 g/dl (30-36); MCV 95.4 fl (81-99); MONOCYTES 8.7 % (0-12); NEUTROPHILS 72.1 % (39-80); PLATELET COUNT 278 K/uL (140-440); RBC 4.48 M/ul (4.3-5.7); RDW 14.8 (10.5-15.0)
[2024-01-18 12:37] LABS: INR 1.06 (0.80-1.30); PARTIAL THROMBOPLASTIN TIME 29.1 Sec (22.9-41.3); PROTIME 13.1 Sec (11.2-14.2)
[2024-01-18 12:48] LABS: ALBUMIN 3.5 g/dL (3.4-5.0); ANION GAP 12.7 (7-21); BILIRUBIN, TOTAL 0.9 ng/dL (0.2-1.0); BUN/CREATININE RATIO 24.24 (6.0-28.6); CALCIUM 9.1 mg/dL (8.5-10.1); CREATININE, SERUM 0.66 mg/dL (0.55-1.02); POTASSIUM 3.7 mmol/L (3.5-5.1)
[2024-01-18] MEDS ORDERED: diphenhydrAMINE HCL 50 MG/ML VIAL IV ONE (13:00)
[2024-01-18] MEDS ORDERED: methylPREDNISolone SOD SUCC 125 MG/2 ML VIAL IV ONE (13:15)
[2024-01-18 13:16] LABS: INFLUENZA B NAA NEGATIVE (NEGATIVE); RESPIRATORY SYNCYTIAL VIR NAA NEGATIVE (NEGATIVE)
[2024-01-18] MEDS ORDERED: CEFDINIR300 MG PO (15:21)
[2024-01-18 15:27] VITALS: BP 136/78
--- NOTE | 2024-01-18 17:47 | EKG ---
[facility] [address] [facility] [place] [address] Signed Sinus tachycardia Lateral infarct (cited on or before 23-OCT-2023) Abnormal ECG When compared with ECG of 23-OCT-2023 14:13, Sinus rhythm has replaced Atrial flutter Questionable change in initial forces of Lateral leads Confirmed by Corey Guy MD ([id number]) on 01/18/2024 5:47:43 PM Electronically Signed By: COREY GUY DO 01/18/24 1747 PATIENT NAME: ADRIANAMARJORIEISA Electrocardiogram DATE OF : 49 PHYSICIAN: COREY GUY DO REPORT #: [id number] REPORT IS CONFIDENTIAL AND NOT TO BE RELEASED WITHOUT AUTHORIZATION
== END 2024-01-18 15:27 | disposition home or self-care (01) ==
LOC: ED 11:58
PROVIDERS: Emergency Medicine
DX: R07.89 Other chest pain (principal); R00.2 Palpitations; J32.9 Chronic sinusitis, unspecified; R00.0 Tachycardia, unspecified; E03.9 Hypothyroidism, unspecified; I48.91 Unspecified atrial fibrillation; Z79.01 Long term (current) use of anticoagulants; Z79.899 Other long term (current) drug therapy; Z88.8 Allergy status to other drugs, medicaments and biological substances; Z88.2 Allergy status to sulfonamides; Z88.1 Allergy status to other antibiotic agents; Z88.0 Allergy status to penicillin
CPT/HCPCS: 36415; 70450; 71260; 80053; 83735; 83880; 84484; 85025; 85610; 85730; 87502; 93005; 93010; 96375; 99285-25; J1200; J2405; J2919; Q9967; U0002

== ENCOUNTER 2024-06-01 17:13 | Emergency (ER) | payer MEDICARE ==
[~2024-06-01] VITALS: Ht 180.3 cm; Wt 77.1 kg
[2024-06-01 20:14] LABS: BASOPHILS 0.4 % (0-2); EOSINOPHILS 1.5 % (0-6); HEMATOCRIT 43.9 % (35.0-50.0); HEMOGLOBIN 15.1 g/dL (12.0-18.0); LYMPHOCYTES 22.2 % (24-44); MCH 32.3 (27-36); MCHC 34.5 g/dl (30-36); MCV 93.5 fl (81-99); MONOCYTES 10.2 % (0-12); NEUTROPHILS 65.7 % (39-80); PLATELET COUNT 259 K/uL (140-440); RBC 4.69 M/ul (4.3-5.7); RDW 13.8 (10.5-15.0)
[2024-06-01 20:30] LABS: ALBUMIN 4.2 g/dL (3.4-5.0); ALBUMIN/GLOBULIN RATIO 1.4 (1.1-2.4); ANION GAP 12.9 (7-21); BILIRUBIN, TOTAL 0.8 mg/dL (0.2-1.0); BUN/CREATININE RATIO 11.47 (6.0-28.6); CALCIUM 9.6 mg/dL (8.5-10.1); CREATININE, SERUM 0.61 mg/dL (0.55-1.02); POTASSIUM 3.9 mmol/L (3.5-5.1); PROTEIN, TOTAL 7.2 g/dL (6.4-8.2)
[2024-06-01] MEDS ORDERED: predniSONE 20 MG TAB PO ONE (21:45)
[2024-06-01] MEDS ORDERED: CEPHALEXIN MONOHYDRATE 500 MG HOME.PACK PO ONE (21:45)
[2024-06-01 21:53] VITALS: BP 131/55
== END 2024-06-01 21:54 | disposition home or self-care (01) ==
LOC: ED 17:13
PROVIDERS: Emergency Medicine
DX: J01.20 Acute ethmoidal sinusitis, unspecified (principal); I10 Essential (primary) hypertension; E03.9 Hypothyroidism, unspecified; I48.91 Unspecified atrial fibrillation; G62.9 Polyneuropathy, unspecified; Z88.0 Allergy status to penicillin; Z88.2 Allergy status to sulfonamides; Z88.1 Allergy status to other antibiotic agents; Z88.8 Allergy status to other drugs, medicaments and biological substances; Z91.041 Radiographic dye allergy status; Z91.018 Allergy to other foods; Z79.01 Long term (current) use of anticoagulants; Z79.899 Other long term (current) drug therapy
CPT/HCPCS: 36415; 70450; 71045; 80053; 83735; 85025; 93005; 93010; 99284-25; A9270; J7512